=== PATIENT | male | born 2005 | race Caucasian/White ===

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

== ENCOUNTER 2023-11-22 15:34 | Emergency (ER) | payer OTHER ==
[~2023-11-22] VITALS: Ht 185.4 cm; Wt 60.4 kg
[~2023-11-22 15:34] MED LIST changes: +CIPRO500 MG PO
[2023-11-22 15:55] LABS: BASOPHILS 0.4 % (0-2); HEMOGLOBIN 15.5 g/dL (12.0-18.0); MCH 29.1 (27-36); MCHC 33.8 g/dl (30-36); MCV 86.3 fl (81-99); NEUTROPHILS 45.6 % (39-80); PLATELET COUNT 216 K/uL (140-440); RBC 5.33 M/ul (4.3-5.7); RDW 12.7 (10.5-15.0)
[2023-11-22 16:10] LABS: ALBUMIN 4.8 g/dL (3.4-5.0); ALBUMIN/GLOBULIN RATIO 1.55 (1.1-2.4); ANION GAP 9.5 (7-21); BILIRUBIN, TOTAL 0.4 ng/dL (0.2-1.0); BUN/CREATININE RATIO 13.13 (6.0-28.6); CALCIUM 9.2 mg/dL (8.5-10.1); CREATININE, SERUM 0.99 mg/dL (0.70-1.30); MAGNESIUM 1.9 mg/dL (1.8-2.4); POTASSIUM 3.5 mmol/L (3.5-5.1); PROTEIN, TOTAL 7.9 g/dL (6.4-8.2)
[2023-11-22 16:43] LABS: BILIRUBIN, URINE NEGATIVE (negative); BLOOD/HGB, URINE NEGATIVE (Negative); KETONE, URINE NEGATIVE (Negative); LEUK ESTERASE, URINE NEGATIVE (negative); NITRITE, URINE NEGATIVE (negative)
[2023-11-22 18:57] LABS: AMPHETAMINES, URINE NEGATIVE (NEGATIVE); BARBITURATES, URINE NEGATIVE (NEGATIVE); BENZODIAZEPINE, URINE NEGATIVE (NEGATIVE); BUPRENORPHINE, URINE NEGATIVE (NEGATIVE); CANNABINOID, URINE NEGATIVE (NEGATIVE); COCAINE, URINE NEGATIVE (NEGATIVE); ECSTASY, URINE NEGATIVE (NEGATIVE); FENTANYL, URINE NEGATIVE (NEGATIVE); METHADONE, URINE NEGATIVE (NEGATIVE); OPIATES, URINE POSITIVE (NEGATIVE); OXYCODONE, URINE NEGATIVE (NEGATIVE); PHENCYCLIDINE, URINE NEGATIVE (NEGATIVE)
[2023-11-22] MEDS ORDERED: OMEPRAZOLE20 MG PO (19:07)
[2023-11-22 19:43] VITALS: BP 121/74
== END 2023-11-22 19:40 | disposition home or self-care (01) ==
LOC: ED 15:34
PROVIDERS: Emergency Medicine
DX: R10.13 Epigastric pain (principal); K29.70 Gastritis, unspecified, without bleeding; Z88.0 Allergy status to penicillin; Z91.030 Bee allergy status
CPT/HCPCS: 36415; 80053; 80307; 81003; 83690; 83735; 85025; 96361; 96374; 96375; 99284-25; C9113; J2405; J7030

== ENCOUNTER 2023-12-05 15:09 | Emergency (ER) | payer OTHER ==
[~2023-12-05] VITALS: Ht 185.4 cm; Wt 58.1 kg
[~2023-12-05 15:09] MED LIST changes: +OMEPRAZOLE20 MG PO
--- OUTSIDE RECORDS SUMMARY | 2023-12-05 15:17 | XMS ---
PreManage Notification: ANDERSON SIDHU Security Bushing And Broach Operator Events No recent Security Events currently on file CRITERIA MET - [facility] - 2 Visits in 30 Days CARE PROVIDERS There are no care providers on record at this time. Care Guidelines exist for the following facilities: [facility] ( 03/04/2020 ) Nikunj VISIT COUNT (12 MO.) 3 [facility] TOTAL 3 NOTE: Visits indicate total known visits. ED/UCC VISIT TRACKING (12 MO.) 12/05/2023 15:09 [facility] TYPE: Emergency COMPLAINT: - ABDOMINAL PAIN 11/22/2023 15:35 [facility] TYPE: Emergency COMPLAINT: - ABDOMINAL PAIN DIAGNOSES: - Allergy status to penicillin - Bee allergy status - Epigastric pain - Gastritis, unspecified, without bleeding - Upper abdominal pain, unspecified 05/30/2023 11:29 [facility] TYPE: Emergency COMPLAINT: - GENITAL PAIN, NAUSEA DIAGNOSES: - Allergy status to penicillin - Bee allergy status - Epididymitis - Nausea INPATIENT VISIT TRACKING (12 MO.) No inpatient visits to display in this time frame [id number]
[2023-12-05 17:11] LABS: BASOPHILS 0.8 % (0-2); EOSINOPHILS 5.7 % (0-6); HEMATOCRIT 45.9 % (35.0-50.0); HEMOGLOBIN 15.4 g/dL (12.0-18.0); LYMPHOCYTES 25.3 % (24-44); MCH 28.9 (27-36); MCHC 33.5 g/dl (30-36); MCV 86.2 fl (81-99); MONOCYTES 10.4 % (0-12); NEUTROPHILS 57.8 % (39-80); PLATELET COUNT 204 K/uL (140-440); RBC 5.32 M/ul (4.3-5.7)
[2023-12-05 17:32] LABS: ALBUMIN 4.4 g/dL (3.4-5.0); ALBUMIN/GLOBULIN RATIO 1.29 (1.1-2.4); ANION GAP 13.9 (7-21); BILIRUBIN, TOTAL 0.7 ng/dL (0.2-1.0); BUN/CREATININE RATIO 12.31 (6.0-28.6); CALCIUM 9.2 mg/dL (8.5-10.1); CREATININE, SERUM 1.38 mg/dL (0.70-1.30); MAGNESIUM 2.2 mg/dL (1.8-2.4); POTASSIUM 3.9 mmol/L (3.5-5.1); PROTEIN, TOTAL 7.8 g/dL (6.4-8.2)
[2023-12-05 18:22] LABS: BILIRUBIN, URINE NEGATIVE (negative); BLOOD/HGB, URINE NEGATIVE (Negative); KETONE, URINE NEGATIVE (Negative); LEUK ESTERASE, URINE NEGATIVE (negative); NITRITE, URINE NEGATIVE (negative)
[2023-12-05 18:29] LABS: BACTERIA, URINE RARE /hpf (negative); CASTS, URINE NONE SEEN \\lpf; COLLECTION TYPE, URINE CLEAN CATCH; CRYSTALS, URINE AMORPHOUS PHOSPH 2+ (0-1+); EPITHELIAL CELLS, URINE NONE SEEN /lpf (0-1+); RED BLOOD CELLS, URINE 0-1 /hpf (0-5); REFLEX CULTURE, URINE No (No); WHITE BLOOD CELLS, URINE 0-1 /HPF (0-5)
[2023-12-05] MEDS ORDERED: ONDANSETRON ODT8 MG PO (20:47)
[2023-12-05] MEDS ORDERED: TRAMADOL HCL50 MG PO (20:47)
[2023-12-05 21:15] VITALS: BP 118/75
== END 2023-12-05 21:15 | disposition home or self-care (01) ==
LOC: ED 15:09
PROVIDERS: Emergency Medicine
DX: R10.11 Right upper quadrant pain (principal); Z88.0 Allergy status to penicillin; Z91.030 Bee allergy status; Z79.899 Other long term (current) drug therapy
CPT/HCPCS: 36415; 74177; 80053; 81001; 83690; 83735; 85025; 99284-25; A9270; J2405; J7121; Q9967

== ENCOUNTER 2024-01-06 22:15 | Emergency (ER) | payer OTHER ==
[~2024-01-06] VITALS: Ht 185.4 cm; Wt 60.0 kg
[~2024-01-06 22:15] MED LIST changes: +TRAMADOL HCL50 MG PO
[2024-01-06 22:45] LABS: BASOPHILS 1.2 % (0-2); EOSINOPHILS 5.3 % (0-6); HEMATOCRIT 48.5 % (35.0-50.0); HEMOGLOBIN 16.5 g/dL (12.0-18.0); LYMPHOCYTES 33.1 % (24-44); MCH 28.8 (27-36); MCHC 33.9 g/dl (30-36); MCV 84.9 fl (81-99); MONOCYTES 11.5 % (0-12); NEUTROPHILS 48.9 % (39-80); PLATELET COUNT 210 K/uL (140-440); RBC 5.72 M/ul (4.3-5.7); RDW 13.4 (10.5-15.0)
[2024-01-06] MEDS ORDERED: ondansetron HCL 4 MG/2 ML VIAL IV ONE (22:45)
[2024-01-06] MEDS ORDERED: LACTATED RINGER'S 1,000 ML IV ONE (22:45)
[2024-01-06] MEDS ORDERED: SUCRALFATE 1 GM TAB PO ONE (22:45)
[2024-01-06] MEDS ORDERED: FAMOTIDINE 20 MG/ 2 ML VIAL IV ONE (22:45)
[2024-01-06 23:02] LABS: ALBUMIN 4.6 g/dL (3.4-5.0); ALBUMIN/GLOBULIN RATIO 1.31 (1.1-2.4); ANION GAP 16.2 (7-21); BILIRUBIN, TOTAL 0.5 ng/dL (0.2-1.0); CALCIUM 9.3 mg/dL (8.5-10.1); CREATININE, SERUM 1.23 mg/dL (0.70-1.30); POTASSIUM 3.2 mmol/L (3.5-5.1); PROTEIN, TOTAL 8.1 g/dL (6.4-8.2)
[2024-01-06 23:03] LABS: BILIRUBIN, URINE NEGATIVE (negative); BLOOD/HGB, URINE NEGATIVE (Negative); KETONE, URINE NEGATIVE (Negative); LEUK ESTERASE, URINE NEGATIVE (negative); NITRITE, URINE NEGATIVE (negative)
[2024-01-06 23:17] LABS: AMPHETAMINES, URINE NEGATIVE (NEGATIVE); BARBITURATES, URINE NEGATIVE (NEGATIVE); BENZODIAZEPINE, URINE NEGATIVE (NEGATIVE); BUPRENORPHINE, URINE NEGATIVE (NEGATIVE); CANNABINOID, URINE NEGATIVE (NEGATIVE); COCAINE, URINE NEGATIVE (NEGATIVE); ECSTASY, URINE NEGATIVE (NEGATIVE); FENTANYL, URINE NEGATIVE (NEGATIVE); METHADONE, URINE NEGATIVE (NEGATIVE); OPIATES, URINE NEGATIVE (NEGATIVE); OXYCODONE, URINE NEGATIVE (NEGATIVE); PHENCYCLIDINE, URINE NEGATIVE (NEGATIVE)
[2024-01-06] MEDS ORDERED: CARAFATE1 GM PO (23:30)
[2024-01-06] MEDS ORDERED: OMEPRAZOLE20 MG PO (23:30)
== END 2024-01-06 23:47 | disposition home or self-care (01) ==
LOC: ED 22:15
PROVIDERS: Internal Medicine
DX: K21.9 Gastro-esophageal reflux disease without esophagitis (principal); Z88.0 Allergy status to penicillin; Z91.030 Bee allergy status
CPT/HCPCS: 36415; 80053; 80307; 81003; 83690; 83735; 85025; 96361; 96374; 96375; 99284-25; J2405; J7121

== ENCOUNTER 2024-11-24 12:48 | Emergency (ER) | payer OTHER ==
[~2024-11-24] VITALS: Ht 182.9 cm; Wt 98.4 kg
[~2024-11-24 12:48] MED LIST changes: +CARAFATE1 GM PO
--- OUTSIDE RECORDS SUMMARY | 2024-11-24 12:54 | XMS ---
PreManage Notification: ANDERSON SIDHU Security Industrial Pharmacist Events No recent Security Events currently on file CRITERIA MET - [facility] - 2 Visits in 30 Days CARE PROVIDERS [facility]: [facility] Current FAMILY PHONE: [phone] Care Guidelines exist for the following facilities: [facility] Nikunj VISIT COUNT (12 MO.) [address] [place] [address] TOTAL 4 NOTE: Visits indicate total known visits. ED/UCC VISIT TRACKING (12 MO.) 11/24/2024 12:48 [facility] [place] TYPE: Emergency COMPLAINT: - URINE PROBLEM 11/23/2024 11:11 [facility] TYPE: Emergency COMPLAINT: - EAR PAIN 01/06/2024 22:15 [facility] TYPE: Emergency COMPLAINT: - ABDOMINAL PAIN DIAGNOSES: - Allergy status to penicillin - Bee allergy status - Gastro-esophageal reflux disease without esophagitis - Upper abdominal pain, unspecified 12/05/2023 15:09 [facility] TYPE: Emergency COMPLAINT: - ABDOMINAL PAIN DIAGNOSES: - Allergy status to penicillin - Bee allergy status - Other mcfp (current) drug therapy - Right upper quadrant pain - Upper abdominal pain, unspecified INPATIENT VISIT TRACKING (12 MO.) No inpatient visits to display in this time frame [id number]
[2024-11-24] MEDS ORDERED: CLARITIN10 M2 PO (15:23)
[2024-11-24 15:30] VITALS: BP 118/83
== END 2024-11-24 15:30 | disposition home or self-care (01) ==
LOC: ED 12:48
DX: H69.83 Other specified disorders of Eustachian tube, bilateral (principal); J06.9 Acute upper respiratory infection, unspecified; Z88.0 Allergy status to penicillin; Z91.030 Bee allergy status; Z79.899 Other long term (current) drug therapy
CPT/HCPCS: 99282

== ENCOUNTER 2025-03-14 19:04 | Emergency (ER) | payer OTHER ==
[~2025-03-14] VITALS: Ht 182.9 cm; Wt 70.0 kg
[~2025-03-14 19:04] MED LIST changes: +CLARITIN10 M2 PO
--- OUTSIDE RECORDS SUMMARY | 2025-03-14 19:11 | XMS ---
PreManage Notification: ANDERSON SIDHU Security Automotive Parts Clerk Events No recent Security Events currently on file CRITERIA MET - Group Notification [facility] Current FAMILY PHONE: [phone] Care Guidelines exist for the following facilities: [facility] ( 03/04/2020 ) Nikunj VISIT COUNT (12 MO.) [address] [facility] TOTAL 3 NOTE: Visits indicate total known visits. ED/UCC VISIT TRACKING (12 MO.) 03/14/2025 19:04 [facility] [place] TYPE: Emergency COMPLAINT: - CHEST PAIN 11/24/2024 12:48 [facility] TYPE: Emergency COMPLAINT: - URINE PROBLEM DIAGNOSES: - Acute upper respiratory infection, unspecified - Allergy status to penicillin - Bee allergy status - Otalgia, bilateral - Other intermission coordinator (current) drug therapy - Other specified disorders of Eustachian tube, bilateral 11/23/2024 11:11 [facility] [place] TYPE: Emergency COMPLAINT: - EAR PAIN INPATIENT VISIT TRACKING (12 MO.) No inpatient visits to display in this time frame [id number]
[2025-03-14] MEDS ORDERED: ACETAMINOPHEN 500 MG TAB PO ONE (20:00)
[2025-03-14 20:03] LABS: BASOPHILS 1.3 % (0-2); EOSINOPHILS 4.9 % (0-6); HEMATOCRIT 42.1 % (35.0-50.0); HEMOGLOBIN 14.9 g/dL (12.0-18.0); LYMPHOCYTES 33.7 % (24-44); MCH 29.5 (27-36); MCHC 35.4 g/dl (30-36); MCV 83.2 fl (81-99); NEUTROPHILS 48.1 % (39-80); PLATELET COUNT 196 K/uL (140-440); RBC 5.06 M/ul (4.3-5.7); RDW 13.2 (10.5-15.0)
[2025-03-14 20:21] LABS: ALBUMIN 4.4 g/dL (3.4-5.0); ALBUMIN/GLOBULIN RATIO 1.38 (1.1-2.4); ALKALINE PHOSPHATASE 96 U/L (46-116); ALT (SGPT) 25 U/L (14-59); ANION GAP 9.5 (7-21); AST (SGOT) 11 U/L (15-37); BILIRUBIN, TOTAL 0.5 mg/dL (0.2-1.0); BUN/CREATININE RATIO 15.23 (6.0-28.6); CARBON DIOXIDE 29 mmol/L (21-32); CHLORIDE 105 mmol/L (98-107); CREATININE, SERUM 1.05 mg/dL (0.70-1.30); GLOMERULAR FILTRATION RATE,EST 104 mL/min (>60); POTASSIUM 3.5 mmol/L (3.5-5.1); PROTEIN, TOTAL 7.6 g/dL (6.4-8.2); UREA NITROGEN 16 mg/dL (7-18)
[2025-03-14 20:50] VITALS: BP 130/82
--- NOTE | 2025-03-15 19:13 | EKG ---
[facility] [address] [facility] [place] [address] Signed Sinus tachycardia Rightward axis Borderline ECG No previous ECGs available Confirmed by Get Harrison MD ([id number]) on 03/15/2025 7:13:17 PM Electronically Signed By: GET HARRISON MD 03/15/251912 PATIENT NAME: ANDERSON SIDHU Electrocardiogram DATE OF : [birth year] PHYSICIAN: GET HARRISON MD REPORT #: [id number] REPORT IS CONFIDENTIAL AND NOT TO BE RELEASED WITHOUT AUTHORIZATION
== END 2025-03-14 20:50 | disposition home or self-care (01) ==
LOC: ED 19:04
PROVIDERS: Emergency Medicine
DX: R07.9 Chest pain, unspecified (principal); Z88.0 Allergy status to penicillin; Z91.030 Bee allergy status
CPT/HCPCS: 36415; 71045; 80053; 84484; 85025; 85379; 93005; 93010; 99285-25; A9270

== ENCOUNTER 2025-05-21 21:29 | Emergency (ER) | payer OTHER ==
[~2025-05-21] VITALS: Ht 182.9 cm; Wt 61.3 kg
--- OUTSIDE RECORDS SUMMARY | 2025-05-21 21:36 | XMS ---
PreManage Notification: ANDERSON SIDHU Security Aeronautical Engineering Officer Events No recent Security Events currently on file CRITERIA MET - Group Notification [facility] Current FAMILY PHONE: [phone] Care Guidelines exist for the following facilities: [facility] ( 03/04/2020 ) Nikunj VISIT COUNT (12 MO.) [address] [facility] TOTAL 4 NOTE: Visits indicate total known visits. ED/UCC VISIT TRACKING (12 MO.) 05/21/2025 21:30 [facility] [place] TYPE: Emergency COMPLAINT: - LT PINKY FINGER INJURY 03/14/2025 19:04 [facility] [place] TYPE: Emergency COMPLAINT: - CHEST PAIN DIAGNOSES: - Allergy status to penicillin - Bee allergy status - Chest pain, unspecified 11/24/2024 12:48 [facility] [place] TYPE: Emergency COMPLAINT: - URINE PROBLEM DIAGNOSES: - Acute upper respiratory infection, unspecified - Allergy status to penicillin - Bee allergy status - Otalgia, bilateral - Other long-term (current) drug therapy - Other specified disorders of Eustachian tube, bilateral 11/23/2024 11:11 [facility] [place] TYPE: Emergency COMPLAINT: - EAR PAIN INPATIENT VISIT TRACKING (12 MO.) No inpatient visits to display in this time frame [id number]
[2025-05-22 01:00] VITALS: BP 125/74
== END 2025-05-22 00:59 | disposition home or self-care (01) ==
LOC: ED 21:29
DX: S62.667A Nondisplaced fracture of distal phalanx of left little finger, initial encounter for closed fracture (principal); X58.XXXA Exposure to other specified factors, initial encounter; Z88.0 Allergy status to penicillin; Z91.030 Bee allergy status
CPT/HCPCS: 73140; 99283